=== PATIENT | female | born 1940 | race Caucasian/White ===

== ENCOUNTER 2016-09-22 12:13 | Emergency (ER) | payer OTHER ==
[2016-09-22] MEDS ORDERED: Sodium Chloride 0.9% 1,000 ML IV ONE (13:03)
--- NOTE | 2016-09-22 13:09 | ED Physician Chart ---
Chief Complaint/HPI - Patient Information Date Seen:: 09/22/16 Time Seen:: 13:04 Chief Complaint:: falls History of Present Illness:: pt here w dtr. had a fall 2 days ago. 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 hit head and has frontal bruise after fall.. was in rehab last month...went home early. c/o back pain but this was before fall as well. has been on ultram for pain w/ o much relief. not currently weak or numb in limbs. no incontinent. pt lives w her dtr who seems somewhat stressed by home care of this pt but overall does not want her readmitted for rehab replacement Allergies:: Allergies Allergy/AdvReac Type Severity Reaction Status Date / Time No Known Allergies Allergy Verified 09/22/16 12:33 Vitals:: Vital Signs - 8 hr 09/22/16 12:37 Temp 98 F HR 96 RR 16 BP 151/92 O2 Sat % 96 Historian:: Patient, Family Member Review of Systems - Review of Systems General/Constitutional: No fever, No chills, No weight loss, No weakness, No diaphoresis, No edema, No loss of appetite Skin: No skin lesions, No rash, No bruising Head: Headache, No light-headedness Eyes: No loss of vision, No pain, No diplopia ENT: No earache, No nasal drainage, No sore throat, No tinnitus Neck: No neck pain, No swelling, No thyromegaly, No stiffness, No mass noted Cardio Vascular: No chest pain, No palpitations, No PND, No orthopnea, No edema Pulmonary: No SOB, No cough, No sputum, No wheezing GI: No nausea, No vomiting, No diarrhea, No pain, No melena, No hematochezia, No constipation, No hematemesis G/U: No dysuria, No frequency, No hematuria 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: No abnormal vaginal bleed Musculoskeletal: No bone or joint pain, No back pain, No muscle pain Endocrine: No polyuria, No polydipsia Psychiatric: No prior psych history, No depression, No anxiety, No suicidal ideation Hematopoietic: No bruising, No lymphadenopathy Allergic/Immuno: No urticaria, No angioedema Neurological: No syncope, No focal symptoms, No weakness, No paresthesia, No headache, No seizure, No dizziness, No confusion, No vertigo Past Medical History - Past Medical History Past Medical History: Other (prior back pain) Social History: Non Smoker, No Alcohol, No Drug Use Medication: Reviewed Family Medical History - Family Member Daughter Hx Family Cancer: No Hx Family Coronary Artery Disease: No Hx Family Hypertension: No Hx Family Stroke: No Hx Family Seizures: No Hx Family Dementia: No Hx Family HIV: No Hx Family COPD: No Hx Family Hepatitis: No Hx Family Tuberculosis: No Physical Exam - Physical Examination General/Constitutional: Awake, Well-developed, well-nourished, Alert, No distress, GCS 15, Non-toxic appearing Other Gen/Cons comments:: awakable but tired. mod poor historian, dry oral mucosa. Head: Atraumatic Eyes: Lids, conjuctiva normal, PERRL, EOMI Skin: Nl inspection, No rash, No skin lesions, No ecchymosis, Well hydrated, No lymphadenopathy ENMT: External ears, nose nl, Nasal exam nl, Lips, teeth, gums nl Neck: Nontender, Full ROM w/o pain, No JVD, No nuchal rigidity, No bruit, No mass, No stridor Respiratory: Nl effort/Exclusion, Clear to Auscultation, No Wheeze/Rhonchi/Rales Cardio Vascular: RRR, No murmur, gallop, rubs, NL S1 S2 GI: No tenderness/rebounding/guarding, No organomegaly, No hernia, Normal BS's, Nondistended, No mass/bruits, No McBurney tenderness : No CVA tenderness Extremities: No tenderness or effusion, Full ROM, normal strength in all extremities, No edema, Normal digits & nails Neuro/Psych: Alert/oriented, DTR's symmetric, Normal sensory exam, Normal motor strength, Judgement/insight normal, Mood normal Misc: normal gait, Normal back, No paraspinal tenderness Labs/Radiology/EKG Results - Lab Results Results: Laboratory Tests 09/22/16 09/22/16 09/22/16 13:25 13:25 13:25 WBC 10.0 RBC 5.15 Hgb 15.2 Hct 44.7 MCV 86.8 MCH 29.4 MCHC Differential 33.9 RDW 14.2 Plt Count 244 MPV 7.2 Neutrophils % 75.8 Lymphocytes % 14.4 L Monocytes % 9.0 Eosinophils % 0.6 Basophils % 0.2 Sodium 135 L Potassium 4.4 Chloride 102 Carbon Dioxide 26.0 Anion Gap 11.4 BUN 8 Creatinine 0.7 Est GFR ( Amer) TNP Est GFR (Non-Af Amer) TNP BUN/Creatinine Ratio 11.4 Glucose 99 Calcium 10.0 Total Bilirubin 0.6 AST 12 L ALT 6 L Alkaline Phosphatase 104 Creatine Kinase 22 L Troponin I Total Protein 6.6 Albumin 3.8 Globulin 2.8 Albumin/Globulin Ratio 1.4 09/22/16 13:25 WBC RBC Hgb Hct MCV MCH MCHC Differential RDW Plt Count MPV Neutrophils % Lymphocytes % Monocytes % Eosinophils % Basophils % Sodium Potassium Chloride Carbon Dioxide Anion Gap BUN Creatinine Est GFR ( Amer) Est GFR (Non-Af Amer) BUN/Creatinine Ratio Glucose Calcium Total Bilirubin AST ALT Alkaline Phosphatase Creatine Kinase Troponin I 0.01 Total Protein Albumin Globulin Albumin/Globulin Ratio - Radiology Results Results: ct head no bleed ct neck no acute inj ct l-spine djd no acute fx - EKG Interpretations EKG Time:: 13:45 Rhythm: nsr [place]: 1 Rate: 82 Comments:: nsr 82, nrml st/t waves. wnl ED Septic Shock - . Is Septic Shock (SBP<90, OR Lactate>4 mmol\L) present?: No - <6hrs of presentation: Vital Signs: Vital Signs - 8 hr 09/22/16 12:37 Temp 98 F HR 96 RR 16 BP 151/92 O2 Sat % 96 Reassessment (Disposition) - Reassessment Reassessment Condition:: Unchanged - Diagnosis Diagnosis:: s/p fall w head contusion hx of frequent falls - Aftercare/Follow up Instructions Aftercare/Follow-Up Instructions:: Counseled pt & family regarding lab results/ diagnosis & need follow up Notes:: advise fu w pmd tmrw for recheck and further evaluation. return if worse..neuro changes..further falls, worse confusion. fall precautions at home. - Patient Disposition Discharge/Transfer:: Home Condition at Disposition:: Unchanged
[2016-09-22 13:31] LABS: % BASOPHILS 0.2 % (0.0-2.0); % EOSINOPHILS 0.6 % (0.0-5.0); % LYMPHOCYTES 14.4 % (20.0-50.0); % NEUTROPHILS 75.8 % (40.0-80.0); HEMATOCRIT 44.7 % (35.0-45.0); HEMOGLOBIN 15.2 gm/dL (11.7-16.1); MEAN CELL VOLUME 86.8 fl (81-100); MEAN CORPUSCULAR HEMOGLOBIN 29.4 pg (27.0-31.0); MEAN CORPUSCULAR HGB CONC 33.9 pg (28.0-36.0); MEAN PLATELET VOLUME 7.2 fl; NEUTROPHILE ABSOLUTE 7.6 Th/cmm (1.8-8.0); PLATELET COUNT 244 Th/cmm (150-400); RED BLOOD COUNT 5.15 Mil/cmm (3.80-5.20); RED CELL DISTRIBUTION WIDTH 14.2 % (11.5-20.0)
[2016-09-22 13:52] LABS: ALB/GLOB RATIO 1.4 (1.0-1.8); ALKALINE PHOSPHATASE 104 U/L (34-104); ANION GAP 11.4 (7.0-16.0); BILIRUBIN,TOTAL 0.6 mg/dL (0.3-1.0); BUN - UREA NITROGEN 8 mg/dL (7-25); BUN/CREATININE RATIO 11.4; CHLORIDE 102 mEq/L (98-107); CREATININE - SERUM 0.7 mg/dL (0.6-1.2); GLUCOSE 99 mg/dL (70-105); POTASSIUM SERUM 4.4 mEq/L (3.5-5.1); SGOT 12 U/L (13-39); SGPT/ALT 6 U/L (7-52); SODIUM SERUM 135 mEq/L (136-145)
--- NOTE | 2016-09-22 15:04 | Diagnostic Imaging Report ---
CT scan of the brain without contrast History: Headache, trauma Total DLP equals 589 CTDI equals 32.6 Axial sections were obtained from the base of the skull to the vertex. There is a normal ventricular system size. No focal parenchymal lesions are seen. No evidence of any mass effect or shift of midline structures. No extra-axial masses or abnormal fluid collections. Sclerotic change involves the left mastoid air cells consistent with inflammatory sequelae Impression: 1. No acute abnormalities 2. Sclerotic change involves the left mastoid air cells consistent with inflammatory sequelae
--- NOTE | 2016-09-22 15:05 | Diagnostic Imaging Report ---
CT scan cervical spine HISTORY: Pain, trauma Total DLP equals 360 CTDI equals 21.1 Axial sections were obtained through the cervical spine. Additional sagittal and coronal reformatted images are provided. The exam demonstrates degenerative changes with spur formation noted about the endplates of all vertebrae. Findings are more pronounced at C5-6 and C6-7. Narrowing of the C6-7 interspace. Partial fusion seen at C2-3. Spur formation results in a mild extradural indentation on the anterior spinal canal at C5-6. No acute abnormalities. No fractures. The margins of the cervical spinal cord or not clearly visualized. The prevertebral soft tissues appear normal. IMPRESSION: 1. No acute abnormalities 2. Diffuse degenerative changes most pronounced at C5-6 and C6-7 3. Partial fusion C2-3
--- NOTE | 2016-09-22 15:08 | Diagnostic Imaging Report ---
CT scan lumbar spine HISTORY: Pain, trauma Total DLP equals 1469 CTDI equals 62.0 Axial sections were obtained through the lumbar spine. Additional sagittal and coronal reformatted images are provided. The exam demonstrates bilateral pars defects (spondylolysis) at L5-S1 with spondylolisthesis of L5 on S1 (approximately 15% displacement). Degenerative changes with hypertrophic bone formation about the pars defects. Narrowing of the L5-S1 interspace along with exuberant spur formation about the vertebral endplates. Air is seen within this interspace reflecting degenerative disc disease. There is narrowing the L4-5 interspace. Air seen within the interspace reflecting degenerative disc disease. Spur formation seen about the vertebral endplates. Additional small spur formation seen about the endplates of L1, L2, L3. Additional degenerative changes noted at T11-T12. No acute abnormalities. No fractures. Atherosclerotic calcification seen in the aorta. IMPRESSION: 1. Diffuse degenerative changes most pronounced L4-5 and L5-S1 2. Bilateral pars defects (spondylolysis) at L5-S1 with spondylolisthesis of L5 on S1. 3. Atherosclerotic vascular changes
== END 2016-09-22 15:48 | disposition home or self-care (01) ==
LOC: ER 12:13
DX: S00.93XA Contusion of unspecified part of head, initial encounter (principal); X58.XXXA Exposure to other specified factors, initial encounter; Y93.9 Activity, unspecified; Y92.89 Other specified places as the place of occurrence of the external cause; Y99.8 Other external cause status
CPT/HCPCS: 36415-UA; 70450-TC; 72125-TC; 72131-TC; 80053-TC; 82550-TC; 84484-TC; 85025-TC; 93005; J7030